=== PATIENT | female | born 1995 | race Caucasian/White ===

== ENCOUNTER 2024-10-19 09:30 | Inpatient (IN) | payer MEDICAID, SELFPAY ==
--- NOTE | 2024-10-10 17:16 | HP.PCM.OB_ITS ---
History and Physical Date of Admission: 10/19/24 Expand All Collapse All Pre-Op History and Physical HPI: The patient is a 29 year old female presenting for pre-operative visit. She is scheduled for , for repeat cs at 39 weeks on 10/19/24. Procedure discussed along with risks, benefits and complications. Other alternatives discussed for management. Consent form signed? Yes. PAST MEDICAL HISTORY PAST MEDICAL HISTORY Diagnosis Date ? Abnormal Pap smear of cervix 03/07/21 Lasor vaporization of the cervix in march of 2021 ? H/O macrosomia in in prior , currently ([facility]) 04/12/2024 ? History of miscarriage 04/12/2024 ? Subchorionic hematoma in first trimester ([facility]) 04/12/2024 April 12, 2024 Bleeding has resolved. Avelina Maravilla APRN.JIN PAST SURGICAL HISTORY PAST SURGICAL HISTORY Procedure Laterality Date ? DELIVERY ONLY 2020 CURRENT MEDICATIONS Current Outpatient Medications Medication Sig Dispense Refill ? aspirin, enteric coated (ECOTRIN LOW STRENGTH) 81 mg EC tablet Take 1 tablet by mouth once daily. 90 tablet 3 ? CALCIUM ORAL Take by mouth as directed. ? IRON, FERROUS SULFATE, ORAL Take by mouth as directed. ? PNV no.95/ferrous fum/folic ac ( ORAL) Take by mouth. No current facility-administered medications for this visit. ALLERGIES: Amoxicillin and Penicillins PERSONAL HISTORY: SOCIAL HISTORY Social History Tobacco Use ? Smoking status: Never ? Smokeless tobacco: Never Vaping Use ? Vaping status: Never Used Substance Use Topics ? Alcohol use: Not Currently ? Drug use: Never FAMILY HISTORY: FAMILY HISTORY FAMILY HISTORY Problem Relation Age of Onset ? Diabetes Mother ? No Known Problems Father ? other (pcos) Sister ? Diabetes Maternal Grandmother ? Bipolar disorder Maternal Grandmother ? No Known Problems Maternal Grandfather ? other (Macular Degeneration [other]) Paternal Grandmother ? Cancer Paternal Grandfather REVIEW OF SYMPTOMS: negative except as noted above PHYSICAL EXAMINATION: VITALS: Blood pressure 124/72, weight 123.4 kg (272 lb), last menstrual period 01/19/2024. GENERAL: The patient is well nourished, well hydrated in no acute distress. , The patient is oriented to time, place, and person. NECK: full range of motion Abd: gravid, non tender IMPRESSION: 29yo @ 37.6 weeks PLAN: repeat cs at 39 weeks Pt has been counseled on risks/benefits and alternatives of surgery including but not limited to anesthesia, bleeding, infection, injury to pelvic structures including bowel, bladder, ureters and vessels. Pt wishes to proceed with surgery at this time. Pre and post op instructions reviewed I have reviewed and updated past medical and surgical history, medications and allergies Valeria Ashraf MD Routine Office Visit on 10/10/2024 Note shared with patient
--- NOTE | 2024-10-10 17:16 | HP.PCM.OB_ITS ---
History and Physical Date of Admission: 10/19/24 Expand All Collapse All Pre-Op History and Physical HPI: The patient is a 29 year old female presenting for pre-operative visit. She is scheduled for , for repeat cs at 39 weeks on 10/19/24. Procedure discussed along with risks, benefits and complications. Other alternatives discussed for management. Consent form signed? Yes. PAST MEDICAL HISTORY PAST MEDICAL HISTORY Diagnosis Date ? Abnormal Pap smear of cervix 03/07/21 Lasor vaporization of the cervix in march of 2021 ? H/O macrosomia in in prior , currently ([facility]) 04/12/2024 ? History of miscarriage 04/12/2024 ? Subchorionic hematoma in first trimester ([facility]) 04/12/2024 April 12, 2024 Bleeding has resolved. Avelina Maravilla APRN.JIN PAST SURGICAL HISTORY PAST SURGICAL HISTORY Procedure Laterality Date ? DELIVERY ONLY 2020 CURRENT MEDICATIONS Current Outpatient Medications Medication Sig Dispense Refill ? aspirin, enteric coated (ECOTRIN LOW STRENGTH) 81 mg EC tablet Take 1 tablet by mouth once daily. 90 tablet 3 ? CALCIUM ORAL Take by mouth as directed. ? IRON, FERROUS SULFATE, ORAL Take by mouth as directed. ? PNV no.95/ferrous fum/folic ac ( ORAL) Take by mouth. No current facility-administered medications for this visit. ALLERGIES: Amoxicillin and Penicillins PERSONAL HISTORY: SOCIAL HISTORY Social History Tobacco Use ? Smoking status: Never ? Smokeless tobacco: Never Vaping Use ? Vaping status: Never Used Substance Use Topics ? Alcohol use: Not Currently ? Drug use: Never FAMILY HISTORY: FAMILY HISTORY FAMILY HISTORY Problem Relation Age of Onset ? Diabetes Mother ? No Known Problems Father ? other (pcos) Sister ? Diabetes Maternal Grandmother ? Bipolar disorder Maternal Grandmother ? No Known Problems Maternal Grandfather ? other (Macular Degeneration [other]) Paternal Grandmother ? Cancer Paternal Grandfather REVIEW OF SYMPTOMS: negative except as noted above PHYSICAL EXAMINATION: VITALS: Blood pressure 124/72, weight 123.4 kg (272 lb), last menstrual period 01/19/2024. GENERAL: The patient is well nourished, well hydrated in no acute distress. , The patient is oriented to time, place, and person. NECK: full range of motion Abd: gravid, non tender IMPRESSION: 29yo @ 37.6 weeks PLAN: repeat cs at 39 weeks Pt has been counseled on risks/benefits and alternatives of surgery including but not limited to anesthesia, bleeding, infection, injury to pelvic structures including bowel, bladder, ureters and vessels. Pt wishes to proceed with surgery at this time. Pre and post op instructions reviewed I have reviewed and updated past medical and surgical history, medications and allergies Valeria Ashraf MD Routine Office Visit on 10/10/2024 Note shared with patient
[2024-10-19] VITALS (21 sets, daily range): BP systolic 94–122; BP diastolic 56–90; PULSE 70–94; RESP 16–18; TEMP 36–36.2; O2SAT 97–100; BMI 44.4
[2024-10-19] MEDS: Lactated Ringers 1,000 ML 999 ML IV (10:05)
[2024-10-19 10:25] LABS: Hematocrit 36.2 % (37-47); Hemoglobin 12.2 g/dL (12.0-15.0); Immature Granulocytes Count 0.060 X10^3/uL (0.0-0.0); Mean Corp Hgb Conc 33.7 g/dL (32-36); Mean Corpuscular Volume 88.1 fL (81-99); Mean Platelet Vol. 9.0 fl (6.2-12.0); NRBC Flagged by Analyzer 0 % (0-5); Platelet Count 268 K/mm3 (150-450); RBC Distribution Width CV 13.3 % (11.6-14.6); RBC Distribution Width SD 42.5 fl (35.1-43.9); Red Blood Count 4.11 M/mm3 (4.2-5.4); White Blood Count 9.2 K/mm3 (4.4-11.0)
[2024-10-19] MEDS: Lactated Ringers 1,000 ML 150 ML IV (11:09)
[2024-10-19 11:25] LABS: Syphilis Antibodies Nonreactive (Nonreactive)
[2024-10-19] MEDS: morphine PF 10 MG/10 ML Ampul IV (14:08)
[2024-10-19] MEDS: Gentamicin 800 MG/20 ML Vial 430 MG IV (14:13)
--- NOTE | 2024-10-19 15:12 | PCM.OPRPT ---
Problems Associated Problem List Diagnoses (1) 39 weeks gestation of : (2) Hx of section: Operative Report (Standard) Operative Information Date of Procedure: 10/20/24 Pre-Operative Diagnosis: 39 week gestation, history prior section Post-Operative Diagnosis: As above Surgery/Procedure Performed: RLTCS via pfannenstiel incision audio visual production specialist: Yes Cotton Breeder: Caty SUAREZ Tasks completed by airplane first officer: Closing and Retracting Type of Anesthesia: Spinal RN Documented Start/Stop Times: Operation Date: 10/19/24 12:00 <No data on this case meets the specified criteria> Procedure Start Time: 14:21 Procedure Stop Time: 15:17 Select all DRAINS/GRAFTS/IMPLANTS that apply: None Special Medications: None Estimated Blood Loss: 800 mL Fluids Replaced: See anesthesia record Specimen collected: No Description of surgery: Patient was taken to the operating room where spinal anesthesia was induced and found to be adequate. She was prepped and draped in the dorsal supine position with a leftward tilt. A pfannenstiel skin incision was made with a scalpel and carried down to the underlying layer of fascia. The fascia was incised in the midline. The fascial incision was extended laterally using Paris scissors. The fascia was dense and significantly adhered to the rectus muscle. Using Leonides clamps the fascia was tented off the rectus muscles, and dissected with sharp and blunt dissection both cephalad and caudad. The rectus muscles were adhered in the midline. Geeta clamps were used to elevate the scarring in the midline of the rectus muscles, and a scalpel was used to separate the rectus muscles in the midline. The peritoneum was then elevated and entered sharply with good visualization of the bladder. The peritoneal incision was extended with lateral traction. A bladder blade was inserted. A low transverse incision was made on the uterus with a scalpel. The uterine incision was extended with cephalad and caudad traction. Membranes were ruptured upon entry for clear fluid. There was a large amount of clear fluid upon entry into the uterus. The head of the infant was flexed and delivered through the hysterotomy followed by the shoulders and body without any excessive traction, force, or delay. A vigorous viable was delivered. The cord was clamped and cut immediately and the was handed off to the waiting nursery staff. The placenta was delivered with fundal massage. The placenta was noted to be normal-appearing and intact. The uterus was exteriorized. The uterus was cleared of all clot and debris. The hysterotomy was closed with 1-0 Vicryl in a running locked fashion. Bilateral adnexa were normal-appearing. The hysterotomy was hemostatic. The uterus was placed back into the abdomen. Javier was placed over the hysterotomy. Hemostasis was again confirmed. The subfascial space was inspected and noted to be hemostatic. The fascia was closed with STRATAFIX in a running fashion. Subcutaneous space was irrigated and noted to be hemostatic. The subcutaneous space was reapproximated using 3-0 Vicryl in 2 layers. The skin was then closed with 4-0 Monocryl in a subicular fashion. Instrument, sharp, sponge counts were correct x 2 and the patient was taken to recovery in stable condition. Surgical Findings: Dense fascia adhered to the rectus muscles Vigorous viable with Apgars 8, 9 Clear fluid Normal appearing uterus and bilateral adnexa Complications Complications: No Admit VTE Documentation VTE Present on Admission: No VTE Mechan Device Prophylaxis: SCD's
[2024-10-19] MEDS: Oxytocin 15 Units/NS 250ml 15 UNITS/250 ML IV.SOLN 83 UNITS IV (15:45)
[2024-10-19] MEDS: Ketorolac 30 MG/ML Syringe IV ×2 (16:52→22:38)
[2024-10-19] MEDS: Lactated Ringers 1,000 ML 100 ML IV (18:56)
[2024-10-20] VITALS (12 sets, daily range): BP systolic 110–114; BP diastolic 56–66; PULSE 66–80; RESP 16; TEMP 36.6–36.7; O2SAT 97–100
[2024-10-20] MEDS: Ketorolac 30 MG/ML Syringe IV ×2 (04:09→10:29)
[2024-10-20] MEDS: 0.9% Saline Lock 10 ML Syringe IV ×2 (04:09→10:29)
[2024-10-20 05:29] LABS: Hematocrit 33.0 % (37-47); Hemoglobin 11.2 g/dL (12.0-15.0); Mean Corp Hgb Conc 33.9 g/dL (32-36); Mean Corpuscular Volume 88.9 fL (81-99); Mean Platelet Vol. 9.0 fl (6.2-12.0); Platelet Count 232 K/mm3 (150-450); RBC Distribution Width CV 13.3 % (11.6-14.6); RBC Distribution Width SD 43.5 fl (35.1-43.9); Red Blood Count 3.71 M/mm3 (4.2-5.4); White Blood Count 9.9 K/mm3 (4.4-11.0)
[2024-10-20] MEDS: Senna/Docusate Sodium 1 Tablet PO (10:29)
--- NOTE | 2024-10-20 15:11 | PCM.PN.OB ---
Subjective Subjective Pt doing well. Pain controlled. Ambulating and voiding without difficulty. Denies lightheadedness, dizziness, chest pain, shortness of breath, leg pain. Lochia is normal. She is tolerating a regular diet without nausea or vomiting. Objective Data Objective Data Vital Signs: Vital Signs Temp Pulse Resp BP Pulse Ox O2 Del Method 97.9 F 77 16 110/60 97 Room Air 10/20/24 12:00 10/20/24 12:00 10/20/24 12:00 10/20/24 12:00 10/20/24 12:00 10/20/24 12:00 Oxygen Delivery Method Room Air Weight: 275 lb 9.245 oz Body Mass Index (BMI) 44.4 Intake & Output: Intake and Output for Last 24 Hours 10/18/24 10/19/24 10/20/24 23:59 23:59 23:59 Intake Total 1959.17 / 1959.17 Output Total 1100 / 1300 900 / 900 Balance 859.17 / 659.17 -900 / -900 Lab / Micro Data 10/20/24 05:15 Labs: Laboratory Results - last 24 hr 10/20/24 05:15: WBC 9.9, RBC 3.71 L, Hgb 11.2 L, Hct 33.0 L, MCV 88.9, MCH 30.2, MCHC 33.9, RDW Std Deviation 43.5, RDW Coeff of Unique 13.3, Plt Count 232, MPV 9.0 Physical Exam Const alert and no apparent distress General Appearance: comfortable HEENT normocephalic Resp normal respiratory effort GI soft to palpation, non-tender and non-distended GI Narrative: Dressing c/d/i Extremity no calf tenderness Assessment & Plan (1) Delivery by section: PLAN: POD#1 s/p section. doing well. routine post op care. anticipate discharge tomorrow.
--- NOTE | 2024-10-20 20:31 | NURSING ---
This RN called pharmacy to confirm Lovenox next dose time due to afternoon dose given late. Pharmacist stated to given next dose 30-60 minutes later than 0315 scheduled time. This RN verbalized understanding.
--- NOTE | 2024-10-21 01:15 | DS.PCM_ITS ---
Providers Date of Admission: 10/19/24 Primary Care Physician: Kay Primary Care Phys Reason For Visit: REPEAT C SECTION Diagnosis Discharge Diagnosis (1) Delivery by section: Status: Acute Medications at Discharge Home Medications vit no.95-ferrous fumarate 28 mg-folic acid 800 mcg tablet () 1 tab PO DAILY 10/19/24 acetaminophen 500 mg tablet 1,000 mg (2 x 500 mg) PO Q6H #0 tabs 10/21/24 ibuprofen 600 mg tablet 600 mg PO Q6H #30 tabs 10/21/24 sennosides 8.6 mg-docusate sodium 50 mg tablet (Stimulant Laxative Plus) 1 tab- cap PO DAILY #30 tabs 10/21/24 Hospital Course Summary of Care Provided Minutes Spent on Discharge: 15 Hospital Course: Repeat section on 10/19. D/C home on postoperative day #2. Postoperative course uncomplicated. Weight / BMI Weight Weight: 275 lb 9.245 oz Body Mass Index (BMI) 44.4 ABG / Lab / Microbiology Data 10/20/24 05:15 Laboratory: Laboratory Results - last 24 hr 10/20/24 05:15: WBC 9.9, RBC 3.71 L, Hgb 11.2 L, Hct 33.0 L, MCV 88.9, MCH 30.2, MCHC 33.9, RDW Std Deviation 43.5, RDW Coeff of Unique 13.3, Plt Count 232, MPV 9.0 D/C Instructions May resume sexual activity in: 6 weeks Weight Bearing Status: Full weight bearing Lifting Restricted to (Lbs): 20 Call your doctor if your incision/area has: Continuous Slow Oozing, Sudden Increased Bleeding, Increased Pain/ Swelling, Increased Redness, Foul Smelling Discharge and Swelling at the incision site Call your doctor if you observe: Fever of 101 or Higher, Inability to urinate, Inability to have a bowel movement, Using more than 1 pad per hour, Shortness of breath, Dizziness, Fainting spells, Chest pain, Increased palpitations (irregular heartbeat), Calf discomfort and Uncontrolled pain Suture Line Care: Avoid Pulling/Pushing Remove Dressing in: 1 week Cleanse incision/area with: Keep Dressing Clean & Dry DC O2, CPAP, BIPAP Needs Home O2 Discharge instructions: No Meaningful Use Info Meaningful Use Meaningful Use Diagnoses (Choose all that apply): None applicable Discharge Plan Admission Admit Date/Time: 10/19/24 09:30 Primary Reason for Your Visit: Delivery Attending Provider: Codi Asher Primary Care Provider: Care Physician,Kay Primary Instructions Additional Instructions / Restrictions: Follow up with on Tuesday at 1030. Discharge Orders/Prescriptions Prescriptions: New acetaminophen 500 mg Tablet 1,000 mg PO Q6H Qty: 0 0RF ibuprofen 600 mg Tablet 600 mg PO Q6H Qty: 30 0RF sennosides-docusate sodium [Stimulant Laxative Plus] 8.6-50 mg Tablet 1 tab-cap PO DAILY Qty: 30 0RF Continued PNV cmb#95-ferrous fumarate-FA [] 28 mg iron- 800 mcg tablet 1 tab PO DAILY Discontinued aspirin 81 mg tablet,delayed release (DR/EC) 81 mg PO DAILY cholecalciferol (vitamin D3) [D3 DOTS] 50 mcg (2,000 unit) tablet 2,000 unit PO DAILY calcium 500 mg tablet Referrals / Follow Up: Care Physician,No Primary [Primary Care Provider] - Disposition Disposition (needs filled in before D/C Order can be placed): Home, Self Care
[2024-10-21 01:50] VITALS: BP 129/81; PULSE 73; RESP 16; TEMP 36.2; O2SAT 98
[2024-10-21 08:00] VITALS: BP 133/70; PULSE 85; RESP 16; TEMP 36.7; O2SAT 98
[2024-10-21] MEDS: Senna/Docusate Sodium 1 Tablet PO (09:34)
== END 2024-10-21 10:50 | disposition home or self-care (01) | DRG 540 ==
PROVIDERS: Obstetrics & Gynecology; Admitting Provider Obstetrics & Gynecology; Referring Provider Obstetrics & Gynecology; Visit Provider Obstetrics & Gynecology
PROC: (CPT 59514; principal; 2024-10-19 11:45)
DX: O99.62 Diseases of the digestive system complicating childbirth (principal); K66.0 Peritoneal adhesions (postprocedural) (postinfection); O34.211 Maternal care for low transverse scar from previous cesarean delivery; Z37.0 Single live birth; Z3A.39 39 weeks gestation of pregnancy; Z87.59 Personal history of other complications of pregnancy, childbirth and the puerperium; Z79.82 Long term (current) use of aspirin
CPT/HCPCS: 59025; 59050; 85025; 85027; 86780; 86850; 86900; 86901; 99221; A4216; G0378